=== PATIENT | female | born 1995 | race Caucasian/White ===

== ENCOUNTER 2018-05-30 11:22 | Emergency (ER) | payer OTHER ==
[2018-05-30 11:27] VITALS: BP 126/74
--- NOTE | 2018-05-30 12:30 | EDPHY ---
General Time Seen by Provider: 05/30/18 12:23 Narrative: CHIEF COMPLAINT: UTI HISTORY OF PRESENT ILLNESS: Patient presents for vehicle with complaints of urinary tract infection. She states she has had some burning and frequent urination for the past 24 hr. No flank pain. No fever. No nausea vomiting. No abdominal pain. No vaginal bleeding or discharge. She denies any chance of . She does have previous UTIs, and the symptoms of the same. Last diagnosed and treated approximately 1 year ago. She has no history of pyelonephritis. No history of urinary reflux that she recalls. No history of renal colic. No other associated complaints or modifying factors. REVIEW OF SYSTEMS: 10 systems were reviewed and negative with the exception of the elements mentioned in the history of present illness. PCP: Does not remember their name SPECIALISTS: None currently PAST MEDICAL HISTORY: Previous UTI PAST SURGICAL HISTORY: No recent surgery SOCIAL HISTORY: Nonsmoker. 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 FAMILY HISTORY: Noncontributory EXAMINATION: Vitals: Triage VS reviewed General Appearance: Alert, no distress. Well appearing. Gastrointestinal: Abdomen is soft and nontender. No tympany rigidity. No guarding. No CVA tenderness. Back: non-tender, no bony abnormalities Skin: Warm and dry, no rash Extremities: Nontender, no pedal edema Psychiatric: Mood and affect normal DIFFERENTIAL DIAGNOSES: Including but not limited to UTI, pyelonephritis, cystitis, urethritis MDM: 12:20 p.m. Urinary tract infection without any flank pain or fever. No abdominal pain with normal abdominal examination. She has no previous failures of antibiotics. No previous pyelonephritis or renal colic. I do not feel that she warrants a urine culture at this time. I have started her on Keflex twice daily. We discussed ED precautions for flank pain, fever or abdominal pain. We discussed anti-inflammatories and pyridium as prescribed. I have answered all her questions. She is well-appearing and discharged home stable condition. SUPERVISION: This patient was independently evaluated without direct involvement of or examination by the attending physician. CONSULTATION: None - History Smoking Status: Never smoked - Objective Vital Signs: Initial Vital Signs Temperature (C) 98.1 F 05/30/18 11:25 Heart Rate 67 05/30/18 11:25 Respiratory Rate 17 05/30/18 11:25 Blood Pressure 126/74 H 05/30/18 11:25 O2 Sat (%) 98 05/30/18 11:25 O2 Delivery Mode Room Air Allergies/Adverse Reactions: No Known Allergies Allergy (Verified 05/30/18 11:24) Home Medications: Medication Instructions Recorded Azo Cranberry 05/30/18 Cephalexin [Keflex (*)] 500 mg PO BID #14 cap 05/30/18 MIRENA 05/30/18 Phenazopyridine HCl [Pyridium] 200 mg PO TID #5 tab 05/30/18 Laboratory Results: 05/30/18 11:30 Urine Color BECCA Urine Appearance CLEAR Urine pH 7.0 (5.0-7.5) Ur Specific Addison 1.013 (1.002-1.030) Urine Protein NEGATIVE (NEGATIVE) Urine Ketones NEGATIVE (NEGATIVE) Urine Blood 2+ H (NEGATIVE) Urine Nitrate POSITIVE H (NEGATIVE) Urine Bilirubin NEGATIVE (NEGATIVE) Urine Urobilinogen NEGATIVE EU EU (0.2-1.0) Ur Leukocyte Esterase NEGATIVE (NEGATIVE) Urine RBC 5-10 /hpf H /hpf (0-3) Urine WBC 5-10 /hpf H /hpf (0-3) Ur Epithelial Cells TRACE /lpf /lpf (NONE-1+) Urine Bacteria TRACE /hpf H /hpf (NONE SEEN) Urine Glucose NEGATIVE (NEGATIVE) Departure - Departure Disposition: Home, Routine, Self-Care Clinical Impression: UTI (urinary tract infection) Qualifiers: Urinary tract infection type: acute cystitis Hematuria presence: with hematuria Qualified Code(s): N30.01 - Acute cystitis with hematuria Condition: Good Instructions: Urinary Tract Infection in Women (ED) Additional Instructions: 1. Antibiotics as prescribed to completion 2. Increase water intake the next few days 3. Pyridium as prescribed as needed 4. ED precautions for plain pain, nausea, vomiting, fever or worsening urinary symptoms Referrals: [facility] [Clinic] - As per Instructions Prescriptions: Cephalexin [Keflex (*)] 500 mg PO BID #14 cap Phenazopyridine HCl [Pyridium] 200 mg PO TID #5 tab
== END 2018-05-30 12:31 | disposition home or self-care (01) ==
DX: N30.01 Acute cystitis with hematuria (principal)